=== PATIENT | female | born 1950 | race American Indian/Alaskan Native ===

== ENCOUNTER 2020-02-24 06:09 | Day surgery (SDC) | payer MEDICARE, OTHER ==
[2020-02-24] MEDS ORDERED: ASPIRIN EC 325 MG TAB PO ONE (06:57)
[2020-02-24 07:24] LABS: Hematocrit 39.4 % (30.3-42.9); Hemoglobin 12.7 gm/dl (10.1-14.3); Lymphocytes # (Auto) 1.5 K/mm3 (1.2-5.4); Lymphocytes % (Auto) 9.6 % (13.4-35.0); Mean Corpuscular HGB Conc 32 % (30-34); Mean Corpuscular Volume 85 fl (79-97); Monocytes # (Auto) 0.5 K/mm3 (0.0-0.8); Monocytes % (Auto) 2.9 % (0.0-7.3); Platelet Count 424 K/mm3 (140-440); Red Blood Count 4.64 M/mm3 (3.65-5.03); Red Cell Distribution Width 13.9 % (13.2-15.2)
[2020-02-24 07:34] LABS: INR 0.96 (0.87-1.13)
[2020-02-24 07:39] LABS: BUN/Creatinine Ratio 31; Blood Urea Nitrogen 28 mg/dL (7-17); Hemolysis Index 1
[2020-02-24] MEDS ORDERED: REGADENOSON 0.4 MG/5 ML INJ IV ONE (07:45)
[2020-02-24] MEDS: SODIUM CHLORIDE 0.9% 500 ML 500 ML IV SCH ×2 (08:00→08:57)
[2020-02-24] MEDS ORDERED: FAMOTIDINE 20 MG/2 ML INJ IV NR (08:00)
[2020-02-24] MEDS ORDERED: diphenhydrAMINE 50 MG/ML VIAL IV NR (08:00)
[2020-02-24] MEDS ORDERED: methylPREDNISolone Sod Succinate 125 MG/2 ML INJ IV NR (08:01)
[2020-02-24] MEDS ORDERED: MIDAZOLAM 2 MG/2 ML INJ ONE (08:07)
[2020-02-24] MEDS ORDERED: HEPARIN/NS 5000 UNIT/500ML 1,000 ML IR ONE (08:07)
[2020-02-24] MEDS ORDERED: HEPARIN 10,000 UNITS/10 ML VIAL ONE (08:07)
[2020-02-24] MEDS ORDERED: NITROGLYCERIN SYRINGE 3 ML ONE (08:08)
[2020-02-24] MEDS ORDERED: LIDOCAINE (2%) 20 MG/1 ML VIAL 20 ML MDV INFILTRATI ONE (08:08)
[2020-02-24] MEDS ORDERED: VERAPAMIL 5 MG/2 ML INJ ONE (08:08)
[2020-02-24] MEDS ORDERED: fentaNYL 100 MCG/2 ML INJ ONE (08:08)
--- NOTE | 2020-02-24 09:28 | Cardiac Catherization Report ---
CARDIAC CATHETERIZATION REFERRING PHYSICIAN: Zion Sharp MD INDICATION FOR PROCEDURE: The patient is a very pleasant 69-year-old -[place]ian female with multiple risk factors, a recent left bundle-branch block, recurrent chest pain despite a normal stress test. Options are discussed with her at length. She would like to proceed with cath. Risks, benefits, alternatives discussed. She has a known DYE ALLERGY. She was premedicated appropriately. PROCEDURE IN DETAIL: The patient was brought to the catheterization lab in a postabsorptive state, prepped and draped in sterile fashion. Guilherme's test in the right hand was normal. A 2 mL of 2% lidocaine used to anesthetize the right wrist. A standard 6-Portuguese hydrophilic sheath was used to cannulate the right radial artery via modified Seldinger technique. All exchanges performed to exchange a J-tip guidewire. JL3.5 catheter was used to engage the left main. No dampening or ventricularization. Cineangiography performed in all projections. JR4 catheter used to cross the aortic valve under fluoroscopic guidance. Left ventriculography performed in 30 DENSON and 30 MONTENEGRIN projections. Next, catheter was used to engage the right coronary. No dampening or ventricularization. Cineangiography performed in all projections. Due to recurrent chest pain, hypertension, root aortography was performed with a 6-Portuguese pigtail catheter in the MONTENEGRIN projection with power injection. Catheter was removed from the body of wire, sheath removed. Manual pressure was used to achieve hemostasis. There were no complications. DATA: The patient remained in normal sinus rhythm throughout the procedure. I directly supervised the administration of moderate sedation from 8:50 a.m. to 9:15 a.m. Aortic pressure is 140/80, LV pressure is 140, LVP of 18 mmHg. Left ventriculography reveals normal systolic performance with estimated ejection fraction of 55-60%. No evidence of aortic stenosis. Root aortogram reveals normal contour, normal great vessel anatomy, no dissection, penetrating aortic ulcer or aortic insufficiency. CORONARY ANATOMY: Left main without significant disease, bifurcates into left anterior descending and left circumflex. LAD is a moderate-sized vessel, courses anterior intergroove, wraps around the apex, mild nonobstructive disease noted with a maximal narrowing of approximately 10-20% in the mid segment. Left circumflex, moderate-sized vessel, courses AV groove, scattered luminal irregularities, 10-20% stenosis in the mid segment. Right coronary is a moderate-sized vessel, courses AV groove, distally bifurcates into posterior descending artery and posterolateral branches, CHRISTOPHER 3 flow, scattered luminal irregularities, no significant disease. CONCLUSIONS: 1. No angiographic evidence of significant epicardial coronary disease in this right dominant system, minimal scattered luminal irregularities, maximal narrowing of 10-20% in the mid LAD and mid left circumflex. 2. Normal left ventricular systolic performance, estimated ejection fraction of 55-60%. 3. No evidence of aortic stenosis. 4. High normal LVEDP. 5. Root aortogram without evidence of dissection, penetrating aortic ulcer or aortic insufficiency. The patient is clinically stable, chest pain free. Aggressive primary and secondary prevention measures. No evidence of contrast allergic reaction. Standard radial care. Results of the procedure were explained at length to the patient and family. All questions were addressed. Follow up with me in the office. JOB# [id number] PANTERA/MONICA
[2020-02-24] MEDS ORDERED: LORazepam 2 MG/ML VIAL ONE (11:08)
--- NOTE | 2020-02-24 14:07 | Short Stay Summary ---
Short Stay Documentation Date of service: 02/24/20 - History H&P: obtained from office - Allergies and Medications Current Medications: Allergies lisinopril Allergy (Verified 02/24/20 06:56) Swelling IV contrast Allergy (Uncoded 02/24/20 06:56) Vomiting Home Medications Medication Instructions Recorded Confirmed Last Taken Type Aspirin EC [Halfprin EC] 81 mg PO QDAY 02/24/20 02/24/20 02/22/20 History 81 mg AtorvaSTATin [Lipitor] 40 mg PO HS 02/24/20 02/24/20 02/23/20 History 40 mg Cholecalciferol Vit D3 [Vitamin D3 1,200 units PO DAILY 02/24/20 02/24/20 02/23/20 History 1,000 UNIT TAB] 1200 units Diclofenac 1% [Diclofenac 1% 1 applicatio TRANSDERMA DAILY 02/24/20 02/24/20 02/23/20 History topical gel] 1 application Gabapentin [Neurontin] 300 mg PO TID 02/24/20 02/24/20 02/23/20 History 300 mg Loteprednol Etabonate [Lotemax 1 - 2 drop OP QID 02/24/20 02/24/20 02/23/20 History 0.5%] 1 drop Zolpidem [Ambien] 5 mg PO HS PRN 02/24/20 02/24/20 02/23/20 History 5 mg cycloSPORINE [Cequa] 1 drop INTRAOCULA DAILY 02/24/20 02/24/20 02/23/20 History 1 drop dilTIAZem HCl [Diltiazem 24Hr ER 180 mg PO DAILY 02/24/20 02/24/20 02/23/20 History (Cd)] 180 mg hydroCHLOROthiazide [HCTZ] 25 mg PO DAILY 02/24/20 02/24/20 02/23/20 History 25 mg metFORMIN [Glucophage] 500 mg PO DAILY 02/24/20 02/24/20 02/22/20 History 500 mg Active Medications Sodium Chloride (Nacl 0.9% 500 Ml) 500 mls @ 50 mls/hr IV DIRECT YANETH Stop: 02/24/20 16:59 Last Admin: 02/24/20 08:57 Dose: 50 mls/hr Documented by: - Brief post op/procedure progress note Date of procedure: 02/24/20 Pre-op diagnosis: chest pain; LBBB Post-op diagnosis: other (mild CAD) Procedure: C - see dictated cath report Anesthesia: local Estimated blood loss: none Condition: stable - Disposition Condition at discharge: Good Disposition: DC-01 TO HOME OR SELFCARE - Discharge Diagnoses (1) Mild CAD Status: Chronic (2) HTN (hypertension) Status: Chronic (3) Diabetes Status: Chronic (4) Hyperlipidemia Status: Chronic (5) LBBB (left bundle branch block) Status: Chronic Short Stay Discharge Plan Activity: advance as tolerated Diet: low fat, low cholesterol, low salt Wound: open to air, keep clean and dry, per your surgeon's advice Follow up with: DEEPAK YO MD [Primary Care Provider] - 7 Days BRITTNEE HARTMAN MD [Staff Physician] - 7 Days Forms: CardCath PCI D/C Instructions
[2020-02-24 14:18] VITALS: BP 134/71
== END 2020-02-24 12:35 | disposition home or self-care (01) ==
LOC: CATH 06:09 → CATHLABREC 06:09
PROVIDERS: ATTEND Internal Medicine
DX: R07.89 Other chest pain (principal); R94.39 Abnormal result of other cardiovascular function study; I44.7 Left bundle-branch block, unspecified; I25.10 Atherosclerotic heart disease of native coronary artery without angina pectoris; I10 Essential (primary) hypertension; E11.9 Type 2 diabetes mellitus without complications; E78.5 Hyperlipidemia, unspecified; G47.30 Sleep apnea, unspecified; K21.9 Gastro-esophageal reflux disease without esophagitis; M19.90 Unspecified osteoarthritis, unspecified site; Z79.899 Other long term (current) drug therapy; Z79.82 Long term (current) use of aspirin; Z79.84 Long term (current) use of oral hypoglycemic drugs; Z88.8 Allergy status to other drugs, medicaments and biological substances; Z98.41 Cataract extraction status, right eye; Z98.42 Cataract extraction status, left eye; Z98.890 Other specified postprocedural states
CPT/HCPCS: 36415; 80048; 85025; 85610; 85730; 93005; 93458; 93567; 99156; 99157; C1894; J1200; J1644; J2250; J2930; J3010; J7040; 96374; 96375; J2060; Q9967